=== PATIENT | female | born 1965 | race Caucasian/White ===

== ENCOUNTER 2023-12-19 10:52 | Outpatient (CLI) | payer BC, SELFPAY ==
--- NOTE | ~2023-12-19 | US_ITS ---
Pelvic ultrasound. Clinical History: Postmenopausal bleeding Technique: Realtime transabdominal and transvaginal scanning of the pelvis was performed. Color flow Doppler and Doppler spectral analysis were performed. Findings: The uterus is anteverted, retroflexed. The endometrial stripe has a thickness of 4 mm. Hyp erechoic mass towards the fundus measures 3.8 x 3.4 cm, compatible with fibroid. Additional probable posterior lower uterine segment fibroid measures 3.7 x 3.8 cm.. Neither ovary seen. No other adnexal mass seen. There is no evidence of free fluid in the cul de sac. Impression: Uterine fibroids, as above. No evidence for abnormal endometrial thickening. Reviewed, dictated and finalized at location . Impression: Uterine fibroids, as above. No evidence for abnormal endometrial thickening.
== END 2023-12-19 10:53 ==
LOC: MICIMG 10:53
PROVIDERS: PCP Nurse Practitioner Family; Visit Provider Nurse Practitioner Family
DX: N95.0 Postmenopausal bleeding (principal); D25.9 Leiomyoma of uterus, unspecified
CPT/HCPCS: 76830; 76856

== ENCOUNTER 2024-02-03 00:09 | Day surgery (SDC) | payer BC, SELFPAY ==
--- NOTE | 2024-01-31 10:38 | SUR.PREOP ---
Report to the Outpatient Waiting Room, entrance under the green pavilion located off [facility], at time 0730 on date 02/03/24. Planned Procedure Time: 0930. Time changes happen often and if your time is changed the preop area will call you the afternoon before. - You and your visitor will be asked to self-screen and do not enter if you have any COVID symptoms. - A mask is optional within the hospital at this time. Patients may have clear liquids (water, carbonated beverages, clear teas, apple juice) until 3 hours prior to surgery with a maximum of 20 ounces. - NO CLEAR LIQUIDS AFTER 0630 - No food from midnight until time of surgery - Infants may have breast milk until 4 hours before surgery, formula 6 hours prior to surgery. - Children will be allowed to drink immediately following surgery. If applicable, please bring a bottle or sippy cup to assist with drinking. Juice, water, soda, and popsicles are readily available. For infants on formula, please bring formula the day of surgery. Pacifiers are allowed. Take the following medications with a SIP of water the morning of surgery: ALPRAZOLAM DO NOT STOP ANY OF YOUR OTHER PRESCRIPTION MEDICATIONS PRIOR TO SURGERY ?EXCEPT THE FOLLOWING Medications to discontinue per physician TIRZEPATIDE Date to take last dose 01/19/24 Please no make-up, nail kazakh, hairspray, perfume, deodorant, or body powder the day of surgery. No jewelry (including any body piercings) or valuables the day of surgery, leave them at home. Please take a shower or bath the night before, or the morning of, surgery with an antibacterial soap. Wear comfortable, loose fitting clothing. Children are encouraged to wear pajamas. - Jewelry must be removed prior to entering the operating room. Rings and piercings that are not removed may be cut off. - The hospital will not accept responsibility for valuables. - Please leave all valuables, including medications, at home the day of surgery. If you are going home after surgery, a licensed bull driver must drive you home. - NO public transportation without another adult if you receive anesthesia. - We recommend that an adult stay with you for 24 hours following discharge. - We also recommend that you do not drive, make important decision, drink alcoholic beverages, or take any drugs that were not prescribed by your health care provider for at least 24 hours after your discharge time. For Pediatric surgeries, we recommend two adults accompany the child home. Follow any additional instructions given to you from your surgeon. If you or anyone in your household have experienced Covid symptoms in the past week, please notify your surgeon or the nurse liaison at the phone number below for possible testing. Telephone instructions given to THANH LÓPEZ and asked if any additional questions and then verbalized understanding. Patient advised to call surgeon office or pre surgery nurse liaison [phone] if any additional questions.
[2024-01-31 10:44] VITALS: BMI 28.3
[2024-02-03 07:41] VITALS: BP 111/70; PULSE 67; RESP 16; TEMP 36.6; O2SAT 99; BMI 31.5
--- NOTE | 2024-02-03 08:16 | PM.IMHP ---
H&P: HPI History of Present Illness Date/Time: 02/03/24 08:16 Chief Complaint: postmenopausal bleeding Narrative: patient is a 58-year-old postmenopausal female presented with complaints of spotting with wiping for 2 weeks which started at the end of November. No cramping. No hormones. She had an ultrasound which showed several fibroids did not show endometrial thickening she was given recommendations for assessment of postmenopausal bleeding which is recommended for endometrial sampling she was informed methods to include office endometrial biopsy and risks benefits of that or hysteroscopy dilation and curettage and removal of any lesion if present risks benefits of that discussed and she opted for a D&C hysteroscopy and removal of lesion if present. Review of Systems Review of Systems: All systems reviewed & are unremarkable except as noted in HPI and below Cardiovascular: Cardiovascular: Reports no additional cardiovascular complaints, Denies chest pain and Denies dyspnea Respiratory: Respiratory: Reports no additional respiratory complaints and Denies dyspnea Gastrointestinal: Gastrointestinal: Reports abdominal pain, Denies change in bowel habits, Denies diarrhea, Denies nausea and Denies vomiting Genitourinary: Genitourinary: Reports pelvic pain Musculoskeletal: Musculoskeletal: Reports back pain Integumentary/Breasts: Skin/Breast: Reports system reviewed and no additional complaints, except as docu Neurologic: Reports system reviewed and no additional complaints, except as documented [facility] Surgical History Surgical History H/O gastric bypass History of appendectomy History of Family History Family History Father Malignant neoplasm of prostate Mother Family history of lung cancer Social History Social History Smoking status: Never smoker Alcohol intake: current Living arrangements: with family Spiritual care concerns: No Meds Home Medications and Allergies Home Medications Medication Instructions Recorded Confirmed Type clobetasol 0.05 % topical ointment 1 applic topical QHS 4 weeks #45 12/14/23 01/31/24 Rx grams cyanocobalamin (vitamin B-12) 100 mcg IM MONTHLY 12/14/23 01/31/24 History 1,000 mcg/mL injection solution tirzepatide 10 mg/0.5 mL 10 mg subcut WEEKLY 12/14/23 01/31/24 History subcutaneous pen injector alprazolam 0.5 mg tablet 0.5 mg PO DAILY PRN Anxiety 01/31/24 01/31/24 History Allergies Allergy/AdvReac Type Severity Reaction Status Date / Time No Known Allergies Allergy Verified 02/03/24 07:57 Exam Const: Orientation/consciousness: oriented to person and oriented to place HENMT: Head: normal to inspection Eyes: General: appearance normal, both eyes and all related structures Resp: Effort & Inspection: normal respiratory effort Auscultation: clear to auscultation bilaterally Cardio: Rate: regular rate Rhythm: regular rhythm GI: Inspection: normal to inspection GI Palp: No Rebound tenderness present Neuro: General: oriented to person and oriented to place Cognition (Neuro): normal cognition Extrem: General: normal to inspection Psych: Appearance: grossly normal and well kempt Assessment and Plan Assessment and plan (1) Post-menopausal bleeding: Code(s): N95.0 - Postmenopausal bleeding Status: Acute Assessment and Plan: We will proceed with dilation and curettage hysteroscopy and removal of any lesion if present.
--- NOTE | 2024-02-03 08:18 | WPDHPUPDATE1 ---
History and Physical Update Update Date/Time: 02/03/24 08:18 History and Physical has been reviewed, including an updated exam of the patient. There are NO changes in the patient's condition. Risks, benefits, and alternatives have been discussed and questions answered. Patient agrees to proceed with procedure.
[2024-02-03] MEDS: LACTATED RINGERS 1,000 ML 30 ML IV CONT (08:20)
[2024-02-03] MEDS: ACETAMINOPHEN 500 MG TABLET 1000 MG PO (08:24)
--- NOTE | 2024-02-03 08:55 | P.PNAN_ITS ---
Anes - Initial Pre Proc Eval Procedure: Operation Date: 02/03/24 09:30 Proposed Procedures p Hysteroscopy Dilation and Curettage Removal of any Endometrial Lesion if Necessary - Tristan Estevez MD Date/Time: 02/03/24 08:55 Surgeon: Tristan Estevez MD Pre Op Diagnosis: post menopausal bleeding Patient Data Age: 58 Gender: F Height: 1.7 m Weight: 82 kg Allergies Allergy/AdvReac Type Severity Reaction Status Date / Time No Known Allergies Allergy Verified 02/03/24 07:57 Home Medications Medication Instructions Recorded Confirmed Type clobetasol 0.05 % topical ointment 1 applic topical QHS 4 weeks #45 12/14/23 01/31/24 Rx grams cyanocobalamin (vitamin B-12) 100 mcg IM MONTHLY 12/14/23 01/31/24 History 1,000 mcg/mL injection solution tirzepatide 10 mg/0.5 mL 10 mg subcut WEEKLY 12/14/23 01/31/24 History subcutaneous pen injector alprazolam 0.5 mg tablet 0.5 mg PO DAILY PRN Anxiety 01/31/24 01/31/24 History Patient hx anesthesia problems: none Family hx anesthesia problems: none Results Review: All pre-operative results and documents have been reviewed as part of the pre- operative evaluation. [facility] Surgical History Surgical History H/O gastric bypass History of appendectomy History of Family History Family History Father Malignant neoplasm of prostate Mother Family history of lung cancer Social History Social History Smoking status: Never smoker Alcohol intake: current Living arrangements: with family Spiritual care concerns: No Anes - Eval Final PreProcedure Day of Procedure 02/03/24 08:55 Patient weight: overweight Heart: regular rate and rhythm Lungs: clear to auscultation Airway: Mallampati scale class II Neurological: alert and oriented Last oral intake: >/= 8 hours ASA classification: II Emergent: no Anesthetic plan: proceed Anesthesia type and monitoring: general GIVS and standard monitoring Results Review: All pre-operative results and documents have been reviewed as part of the pre- operative evaluation. Hx of gastric bypass, lost approx 100 lbs, now on GLP1 but has been off for approx 2 weeks. Informed Consent: The patient's anesthetic plan and its attendant risks and benefits were discussed with the patient/family/POA. Questions were solicited and answers provided to the satisfaction of the patient/family/POA.
[2024-02-03] MEDS: ceFAZolin 2 GM/D5W 50 ML 2 GM/50 ML BAG IVPB (09:44)
[2024-02-03] MEDS: LIDOCAINE HCL 1% LOCAL INJ 20 ML VIAL 10 ML INFILTRATE (09:44)
--- NOTE | 2024-02-03 10:13 | W.PM.PROC2 ---
Procedure Note - Detailed Date of Procedure 02/19/24 Pre-op Diagnosis post menopausal bleeding Post-op Diagnosis Same Procedure Performed D&C hysteroscopy and removal of endometrial lesion Surgeon Tristan Estevez MD Anesthesia MAC and Local Indications postmenopausal bleeding Findings uterus sound to 6 cm there was a flat like polyp area at the right upper uterus cornual area this was removed completely the rest of the cavity appeared atrophic Description of Procedure after informed consent was obtained patient was taken to the operating room and adequate IV sedation was administered she was placed in high lithotomy position and prepped and draped in sterile fashion. Attention was turned to the vagina speculum was inserted single-tooth tenaculum placed on anterior lip of the cervix 10 cc of 1% lidocaine was injected at the cervical vaginal interface at 2:58 a.m. and 10 position. Cervix was stenotic. The cervix was dilated to a size 6 [place] dilator the hysteroscope was inserted the cavity was visualized findings per above. The instrument of Marco instrument was used to remove the flat polyp area at the right of the uterus this was removed completely. A curettage was performed with minimal tissue obtained. Speculum removed. Sponge count correct patient tolerated procedure well. Estimated Blood Loss 5 Drains No Packing No Pathology Yes ( Endometrial curettings and shavings) Complications No immediate complications Condition Stable Disposition Same day [facility] Billing Surgery - Charge Forward: Surgery Billing
[2024-02-03 10:15] VITALS: BP 112/60; PULSE 66; RESP 14; O2SAT 99
[2024-02-03 10:45] VITALS: BP 105/74; PULSE 73
== END 2024-02-03 11:10 | disposition home or self-care (01) ==
PROVIDERS: PCP Family Medicine; Visit Provider Obstetrics & Gynecology
PROC: 0U5B8ZZ Destruction of Endometrium, Via Natural or Artificial Opening Endoscopic (ICD-10-PCS; CPT 58563; principal; 2024-02-03 09:30)
DX: N95.0 Postmenopausal bleeding (principal); N84.0 Polyp of corpus uteri; Z98.84 Bariatric surgery status
CPT/HCPCS: 58558; 88305; A9270; J0690; J2250; J2405; J2704; J3010; J7120